=== PATIENT | male | born 2000 | race Caucasian/White ===

== ENCOUNTER 2021-03-09 20:26 | Emergency (ER) | payer OTHER, MEDICAID, SELFPAY ==
--- NOTE | 2021-03-09 20:54 | PC.NURSE ---
Pt stating he may need to go to another hospital. Pt noted to be walking out of the department.
[2021-03-09 21:03] VITALS: BP 144/82; PULSE 57; RESP 12; TEMP 36.9; O2SAT 99
--- NOTE | 2021-03-09 22:25 | ED.WOUNDLAC ---
HPI - Wound/Laceration General Chief Complaint: Wound/Laceration Stated Complaint: hand lac Time Seen by Provider: 03/09/21 22:13 Source: patient and RN notes reviewed Mode of arrival: ambulatory Limitations: no limitations History of Present Illness HPI narrative: This is a 20 year old right hand dominant male who presents for evaluation of left hand laceration. He states just prior to arrival he cut his hand with an exacto knife. He denies numbness or tingling to fingers. He states he is up to date on his tetanus. He has minimal pain unless you touch his wound. Related Data Allergies Allergy/AdvReac Type Severity Reaction Status Date / Time No Known Allergies Allergy Mild Unverified 12/08/18 14:35 Review of Systems Review of Systems: All systems reviewed & are unremarkable except as noted in HPI and below PMFSH Past Medical History Medical History (Updated 03/09/21 @ 23:20 by Sofia Couhc MD) Patient denies medical problems Surgical History Surgical History (Updated 03/09/21 @ 22:29 by Sofia Couch MD) No pertinent past surgical history Social History Social History (Updated 03/09/21 @ 22:30 by Sofia Couch MD) Smoking status: Never smoker Gender identity (if verbalized by the patient): Male Exam Const: General: no acute distress and alert Orientation/consciousness: patient oriented x3 Eyes: EOM: EOMs intact bilaterally Resp: Effort & Inspection: normal respiratory effort Skin: Other: left hand with L shape flap laceration along thenar eminence 5 cm in length Neuro: General: patient oriented x3, moves all extremities and CN's II-XI intact bilaterally Psych: Mental Status: mental status grossly normal Affect: normal affect Course Reevaluation(s) Reevaluation #1: I discussed with patient that discharge plan and management of his left hand laceration. Date: 03/09/21 Time: 23:16 Vital Signs Vital signs: Vital Signs Temperature 98.5 F 03/09/21 21:03 Pulse Rate 57 L 03/09/21 21:03 Respiratory Rate 12 03/09/21 21:03 Blood Pressure 144/82 H 03/09/21 21:03 Pulse Oximetry 99 03/09/21 21:03 Temperature 98.5 F 03/09/21 21:03 Pulse Rate 57 L 03/09/21 21:03 Respiratory Rate 12 03/09/21 21:03 Blood Pressure 144/82 H 03/09/21 21:03 Pulse Oximetry 99 03/09/21 21:03 Procedures Laceration Laceration 1: Date: 03/09/21 Time: 23:17 Side (If applicable): left Size (cm): 5 Description: flap Depth: simple, single layer Local Anesthetic: lidocaine 1% Amount of anesthesia used (mL): 3 Pre-repair: wound explored, irrigated and deep structures intact ====== Skin Level ====== Skin layer closed with: prolene Size (cm): 4-0 Number of sutures: 5 Technique: horizontal mattress ====== Subcutaneous Layer ====== ====== Muscle Layer ====== ====== Tendon Layer ====== Discharge Plan Discharge Clinical Impression: Laceration of hand, left Qualifiers: Encounter type: initial encounter Foreign body presence: without foreign body Qualified Code(s): S61.412A - Laceration without foreign body of left hand, initial encounter Patient Disposition: Home, Self-Care Condition: Stable Instructions: Care For Your Stitches (ED), Laceration (ED) Additional Instructions: Today you were treated for a laceration. Keep your wound clean and dry. Keep covered if you are going to be doing something that may contaminate wound. You can get a brace at [facility] or health system to protect your wound if needed. Prescriptions: New tramadol 50 mg tablet 50 mg PO Q6H PRN (Reason: pain) Qty: 7 RF: 0 Follow-up/Referrals: Shane Wells MD [Physician] - PHYSICIAN,ASSISTANT REFINERY OPERATOR [Primary Care Provider] -
[2021-03-09] MEDS: IBUPROFEN 600 MG TABLET PO (22:39)
[2021-03-09] MEDS: LIDOCAINE HCL 1% LOCAL INJ 20 ML VIAL 5 ML INFILTRATE (22:40)
== END 2021-03-10 00:20 | disposition home or self-care (01) ==
PROVIDERS: Emergency Provider General Practice
DX: S61.412A Laceration without foreign body of left hand, initial encounter (principal); W27.8XXA Contact with other nonpowered hand tool, initial encounter
CPT/HCPCS: 12002; 99283; A9270

== ENCOUNTER 2021-03-17 17:37 | Emergency (ER) | payer OTHER, MEDICAID, SELFPAY ==
[2021-03-17 17:46] VITALS: BP 126/85; PULSE 70; RESP 16; TEMP 37.4; O2SAT 100
--- NOTE | 2021-03-17 18:51 | ED.GENADULT ---
HPI - General Adult General Chief complaint: Wound/Laceration Stated complaint: check stitches Time Seen by Provider: 03/17/21 18:51 Source: patient and RN notes reviewed Mode of arrival: ambulatory Limitations: no limitations History of Present Illness HPI narrative: 20-year-old male presents to have sutures removed from left hand, inserted 8 days ago. ?Healing wound to LT hand with [address]. ?Concern for wound infection and if sutures are ready to be removed.??Tenderness, erythema, and swelling to the area. ?No fever. ?No drainage. ?No streaking. ?Murphy has been following recent discharge instructions. ?Remains active. ?Immunizations up-to-date. ?The patient reports he has not been diagnosed with COVID-19. ?The patient reports he is not waiting for the results of a COVID-19 lab test. ?The patient reports he does not have chills, weakness, or fatigue. ?The patient reports he does not have a new or worsening cough or shortness of breath. ?Denies chest pain. ?The patient reports he does not have any rhinorrhea, congestion, loss of taste or smell, sore throat, nausea, vomiting, abdominal pain, and diarrhea. ?Denies recent traveling. ?Denies concerns for COVID-19 or exposures. ?At this time, the patient is not suspected of having COVID-19.?? Some parts of this dictation were generated by voice recognition software and may contain typographical and/or grammatical inaccuracies. Related Data Allergies Allergy/AdvReac Type Severity Reaction Status Date / Time No Known Allergies Allergy Mild Unverified 03/17/21 17:55 Review of Systems Review of Systems: Narrative: CONSTITUTIONAL: Denies fever, chills, sweats. EYES: Denies visual changes, redness, discharge. ENT: Denies rhinorrhea, congestion, sore throat, otalgia. CARDIOVASCULAR: Denies chest pain, palpitations, edema. RESPIRATORY: Denies dyspnea, wheezing, cough. GASTROINTESTINAL: Denies abdominal pain, nausea, vomiting, diarrhea. SKIN: Denies rash or itching. Complaints of needing sutures removed from the left hand. MUSCULOSKELETAL: Denies acute back pain, joint pain, or myalgia. NEUROLOGIC: Denies numbness or focal weakness. PSYCHIATRIC: Denies anxiety or depression. All other systems reviewed are negative, except as documented in HPI and below. [facility] Past Medical History Medical History (Updated 03/18/21 @ 00:00 by Dave Fox) Patient denies medical problems Surgical History Surgical History (Updated 03/09/21 @ 22:29 by Sofia Couch MD) No pertinent past surgical history Family History Family History (Updated 03/17/21 @ 19:06 by MAGDA Eden) Father Alive and well Mother Alive and well Social History Social History (Updated 03/17/21 @ 19:07 by MAGDA Eden) Smoking status: Never smoker Tobacco type: cigarettes Second hand tobacco smoke exposure: No Alcohol intake: never Substance use: never Substance use type: does not use Living arrangements: with family Occupation/Education: student Gender identity (if verbalized by the patient): Male Sexual Orientation (if Verbalized by the Patient): Straight or Heterosexual Comments At time of signature, agree with the nurse past medical, surgical, social, and family history. There is no relevant family history pertinent to the presenting complaint. Exam Narrative: Exam Narrative: GENERAL: This is a well-nourished, well-developed patient, in no apparent distress. Talks in full sentences and ambulates with steady gait without dyspnea. HEAD: Atraumatic. Normocephalic. No temporal or scalp tenderness. EYES: PERRL. Sclera clear/white. Vision is grossly intact. NECK: Neck supple, non-tender without lymphadenopathy, masses, or thyromegaly. CARDIOVASCULAR: Regular rate and rhythm without murmurs, gallops, or rubs. RESPIRATORY: Clear to auscultation. Breath sounds equal bilaterally. No wheezes, rales, or rhonchi. ? GASTROINTESTINAL: Abdomen soft, non-tender, nondi
== END 2021-03-17 19:15 | disposition home or self-care (01) ==
PROVIDERS: Emergency Provider Nurse Practitioner Family
DX: S61.412A Laceration without foreign body of left hand, initial encounter (principal); X58.XXXA Exposure to other specified factors, initial encounter
CPT/HCPCS: 99213; G0463

== ENCOUNTER 2022-03-26 17:21 | Emergency (ER) | payer OTHER, MEDICAID, SELFPAY ==
--- NOTE | ~2022-03-26 | XR_ITS ---
XR ankle LT min 3V DATE: 03/26/2022 18:04 INDICATION: Rolled ankle playing basketball. Lateral pain and swelling. TECHNIQUE: 4 views COMPARISON: None FINDINGS: There is prominent anterolateral soft tissue swelling. No fracture or dislocation of the an kle or disruption of the ankle mortise is detected. No periosteal reaction or bone destruction. IMPRESSION: Prominent anterolateral soft tissue swelling; no fracture or dislocation Reviewed, dictated and finalized at location B. IMPRESSION: Prominent anterolateral soft tissue swelling; no fracture or disloc ation
[2022-03-26 17:35] VITALS: BP 118/65; PULSE 70; RESP 20; TEMP 37.1; O2SAT 97
--- NOTE | 2022-03-26 19:05 | ED.LOWEXIN ---
HPI - Extremity Injury (Lower) General Chief Complaint: Extremity Injury, Lower Stated Complaint: Left Ankle Injury Time Seen by Provider: 03/26/22 19:06 Source: patient, RN notes reviewed and old records reviewed Mode of arrival: ambulatory Limitations: no limitations History of Present Illness HPI Narrative: 21 year old male presents to [facility] care with complaints of injury to his left ankle while playing basketball last night. Patient stats that he landed on his left ankle side ways and has pain and swelling to the anterolateral aspect of his left ankle with increased pain with weight bearing. Patient has full ROM of his left ankle with increased pain, circulation and sensation is intact. He has been applying ice and taking Ibuprofen for his discomfort. MD complaint: ankle injury Treatments prior to arrival: cold therapy and NSAIDS Related Data Home Medications Medication Instructions Recorded Confirmed No Home Medications 03/26/22 03/26/22 Allergies Allergy/AdvReac Type Severity Reaction Status Date / Time No Known Allergies Allergy Mild Verified 03/26/22 17:43 Review of Systems Review of Systems: CONSTITUTIONAL: Denies fever, chills, or sweats. EYES: Denies visual changes, redness, or discharge. ENT: Denies rhinorrhea, congestion, sore throat, or otalgia. CARDIOVASCULAR: Denies chest pain, palpitations, or edema. RESPIRATORY: Denies cough or dyspnea. GASTROINTESTINAL: Denies abdominal pain, nausea, vomiting, or diarrhea. GENITOURINARY: Denies dysuria or hematuria. SKIN: Denies rash or itching. MUSCULOSKELETAL: Denies back pain, positive for swelling and pain to left ankle or myalgia. NEUROLOGIC: Denies headache, numbness, or weakness. PSYCHIATRIC: Denies anxiety or depression. [facility] Past Medical History Medical History (Updated 03/28/22 @ 19:32 by Scarlet Carrasco NP) Eczema Right ankle injury Surgical History Surgical History No pertinent past surgical history Family History Family History Father Alive and well Mother Alive and well Social History Social History Smoking status: Never smoker Tobacco type: cigarettes Second hand tobacco smoke exposure: No Alcohol intake: never Substance use: never Substance use type: does not use Gender identity (if verbalized by the patient): Male Sexual Orientation (if Verbalized by the Patient): Straight or Heterosexual Comments At time of signature, agree with nursing past medical, surgical, social and family history. There is no relevant family history pertinent to the presenting complaint Exam Narrative: GENERAL: Well-appearing, well-nourished, and in no acute distress. HEAD: Normocephalic, atraumatic. EYES: PERRLA and EOMI ENT: Nares clear, no rhinorrhea or epistaxis. Mucous membranes moist.TM's normal with ood light reflex, throat pink with no lesions or exudates or tonsil swelling. NECK supple with no lymphadenopathy Respirations even and nonlabored with no tachypnea, SAO2 97% on room air HEART: Regular rate and rhythm. No murmur heard. Normal peripheral pulses. ABDOMEN: Soft, nontender, nondistended, normal active bowel sounds. EXTREMITIES: Normal range of motion. No edema.Exception noted to left ankle with swelling and pain to anterolateral ankle with increased pain in movement and weight bearing. Strong left pedal pulse present patient denies any tingling or numbness to left foot or toes. SKIN: Warm, dry, no rash. NEURO: No focal deficits. Alert and oriented x3. Course Course Level of Care: Express Care Visit Vital Signs Vital signs: Vital Signs Temperature 37.1 C 03/26/22 17:35 Pulse Rate 70 03/26/22 17:35 Respiratory Rate 20 03/26/22 17:35 Blood Pressure 118/65 03/26/22 17:35 Pulse Oximetry 97 03/26/22 17:35 Oxygen Delivery Room Air 03/26
== END 2022-03-26 19:25 | disposition home or self-care (01) ==
PROVIDERS: Emergency Provider Registered Nurse
DX: S93.402A Sprain of unspecified ligament of left ankle, initial encounter (principal); S96.912A Strain of unspecified muscle and tendon at ankle and foot level, left foot, initial encounter; X50.9XXA Other and unspecified overexertion or strenuous movements or postures, initial encounter; Y93.67 Activity, basketball; M25.472 Effusion, left ankle
CPT/HCPCS: 73610; 99213; G0463

== ENCOUNTER 2022-05-14 17:03 | Emergency (ER) | payer OTHER, MEDICAID, SELFPAY ==
--- NOTE | ~2022-05-14 | XR_ITS ---
XR wrist RT min 3V DATE: 05/14/2022 17:32 INDICATION: Injury 3 weeks ago. Persistent medial wrist pain TECHNIQUE: 4 views COMPARISON: None FINDINGS: No fracture or dislocation, periosteal reaction or bone destruction, erosive change or cornelio drocalcinosis. Joint spaces are preserved. IMPRESSION: Negative Reviewed, dictated and finalized at location A. IMPRESSION: Negative
[2022-05-14 17:10] VITALS: BP 135/72; PULSE 58; RESP 14; TEMP 37.1; O2SAT 99
--- NOTE | 2022-05-14 17:31 | ED.UPPEXIN ---
HPI - Extremity Injury (Upper) General Chief Complaint: Extremity Injury, Upper Stated Complaint: Right Wrist Injury Time Seen by Provider: 05/14/22 17:50 Source: patient and RN notes reviewed Mode of arrival: ambulatory Limitations: no limitations History of Present Illness HPI narrative: 21-year-old male presents concern for right wrist pain. He reports multiple injuries to the wrist, 3 weeks ago he was on a long board and fell causing pain of the wrist. Reports last week he was moving shingles when he felt pain in the wrist again. He reports pain when he bends his wrist. He denies swelling, redness, bruising, open skin, warmth. Reports has been wearing a brace. MD complaint: injury to: right and wrist Related Data Home Medications Medication Instructions Recorded Confirmed No Home Medications 03/26/22 05/14/22 Allergies Allergy/AdvReac Type Severity Reaction Status Date / Time No Known Allergies Allergy Mild Verified 05/14/22 17:17 Review of Systems Review of Systems: CONSTITUTIONAL: Denies malaise, chills, sweats, or fever. SKIN: Denies rash or itching, open skin, laceration, abrasion, redness, warmth, swelling. MUSCULOSKELETAL: Reports right wrist pain NEUROLOGIC: Denies numbness, weakness All systems reviewed & are unremarkable except as noted in HPI and below PMFSH Past Medical History Medical History (Updated 05/14/22 @ 17:59 by Ching Ramos NP) Eczema Right ankle injury Surgical History Surgical History No pertinent past surgical history Family History Family History Father Alive and well Mother Alive and well Social History Social History Smoking status: Never smoker Tobacco type: cigarettes Second hand tobacco smoke exposure: No Alcohol intake: never Substance use: never Substance use type: does not use Gender identity (if verbalized by the patient): Male Sexual Orientation (if Verbalized by the Patient): Straight or Heterosexual Comments At time of signature, agree with nursing past medical, surgical, social and family history. There is no relevant family history pertinent to the presenting complaint Exam Narrative: GENERAL: Well-appearing, well-nourished, and in no acute distress. HEAD: Normocephalic, atraumatic. EYES: PERRLA, conjunctivae clear NECK: Supple. CHEST: Speaks in full sentences. No respiratory distress. HEART: Regular rate and rhythm. Normal and equal peripheral pulses. EXTREMITIES: Right wrist, hand, digits have normal strength and sensation, normal range of motion. No edema or ecchymosis. 5/5 strength with digit flexion and extension. Normal sensation with sensitivity to light touch and pain. No point tenderness. No open wounds, no skin tenting, no devitalized tissue or atrophy, no trophic changes, no obvious deformity, alignment normal, nearby joints and structures intact. Distal pulses palpable and equal bilaterally, skin warm, dry, pink. Capillary refill less than 3 seconds. SKIN: Warm, dry, no rash. NEURO: Alert and oriented x3. PSYCH: Normal mood and affect Course Course Emergency Course: Patient is aware of diagnosis, understands and agrees to treatment plan. Anticipatory guidance given. Patient agrees to follow-up as directed and is aware of reasons to seek care at the emergency department. Portions of this record may have been created with voice recognition software Level of Care: Express Care Visit Vital Signs Vital signs: Vital Signs Temperature 98.8 F 05/14/22 17:10 Pulse Rate 58 L 05/14/22 17:10 Respiratory Rate 05/14/22 17:10 Blood Pressure 135/72 05/14/22 17:10 Pulse Oximetry 99 05/14/22 17:10 Oxygen Delivery Room Air 05/14/22 17:10 Temperature 98.8 F 05/14/22 17:10 Pulse Rate 58 L 05/14/22 17:10 Respiratory Rate 14
== END 2022-05-14 18:01 | disposition home or self-care (01) ==
PROVIDERS: Emergency Provider Nurse Practitioner
DX: S63.501A Unspecified sprain of right wrist, initial encounter (principal); S66.911A Strain of unspecified muscle, fascia and tendon at wrist and hand level, right hand, initial encounter; X50.3XXA Overexertion from repetitive movements, initial encounter
CPT/HCPCS: 73110; 99213; G0463

== ENCOUNTER → 2022-06-22 12:16 | Outpatient (CLI) | payer OTHER, MEDICAID, SELFPAY ==
--- NOTE | ~2022-06-22 | MR_ITS ---
EXAMINATION: MR wrist RT wo con DATE: 06/22/2022 13:03 INDICATION: Ulnar sided right wrist pain. TECHNIQUE: Magnetic resonance imaging (MRI) of the wrist was performed without intravenous contrast. Sequences performed include coronal T1-weighted FSE, coronal PD-weighted FS FSE, axial PD-weighted FS FSE, axial PD-weighted FSE, sagittal PD-weighted FSE, and sagittal PD-weighted FS FSE. COMPARISON: Right wrist radiograph 05/31/2022 FINDINGS: Intrinsic ligaments: There is degeneration of scapholunate ligament and lunotriquetral ligament without well-defined tear. Triangular fibrocartilage complex (TFCC): There are proximal surface and distal surface partial tears of triangular fibrocartilage. Extensor wrist: The extensor tendons are normal. Flexor wrist: The flexor tendons are normal. Median nerve is normal. Guyon's canal: Ulnar nerve is normal. Bones/other: There is dorsal subluxation of ulna with respect to radius. There is a fracture of the hook of the santos mate with surrounding edema. There is dorsal tilt of lunate, consistent with dorsal intercalated segm ental instability. There is mild osteoarthritis of first carpometacarpal joint. IMPRESSION: 1. Fracture of the hook of hamate. 2. Dorsal intercalated segmental instability (DISI). 3. Partial tears of triangular fibrocartilage. Reviewed, dictated and finalized at location A.
== END ==
PROVIDERS: PCP Orthopaedic Surgery; Visit Provider Orthopaedic Surgery
DX: M25.531 Pain in right wrist (principal); S62.101A Fracture of unspecified carpal bone, right wrist, initial encounter for closed fracture; M25.331 Other instability, right wrist; S63.591A Other specified sprain of right wrist, initial encounter
CPT/HCPCS: 73221